=== PATIENT | male | born 1990 | race Two or more races ===

== ENCOUNTER 2024-11-25 21:50 | Emergency (ER) | payer SELFPAY ==
[~2024-11-25] VITALS: Ht 182.9 cm; Wt 136.9 kg
[2024-11-25 21:53] VITALS: BP 172/88; PULSE 84; RESP 16; TEMP 98.3; O2SAT 96
[2024-11-25] MEDS ORDERED: GABAPENTIN 300 MG CAP PO ONE (22:15)
--- NOTE | 2024-11-25 22:16 | ED.PDOC ---
Back pain HPI HPI Comments 34-year-old male who came to ER were back pains. Patient is morbidly obese, has history of sciatica. States for the past 2 weeks, he has been experiencing pain at his right buttocks, radiating down the back of his right leg. For the past 2 days, he has been experiencing numbness of his right leg and left foot. More concerning is that the patient has had groin numbness for the past 24 hours. Patient states he has never experienced numbness before so he decided to come to the ER for further evaluation and management. Patient does ambulate with a slight limp. Chief Complaint: Back Pain Time Seen by MD: 22:19 Reviewed Notes: Nurses Notes Allergies: Coded Allergies: NO KNOWN ALLERGIES (Unverified , 11/25/24) Information Source: Patient Mode of Arrival: Ambulatory Timing: Hours Duration: Since onset Location of Back pain: (R) Buttocks Radiates to: Posterior: (R) Calf, (R) Foot, (L) Foot, (R) Thigh Severity: Moderate Prehospital treatment: None Quality: Aching Onset: Spontaneous History of: Chronic Back Pain, Other (Sciatica) Associated signs and symptoms: Numbness:(L) Foot, Numbness:(R) Leg Past Medical History PAST MEDICAL HISTORY: Denies Past Medical History (Other): Sciatica Surgical History: Denies all surgeries Family History Family History: Reviewed,noncontributory to illness Social History Smoker: Non-Smoker Alcohol: Denies ETOH Use Drugs: Denies Drug Use Lives In: Home Constitutional: denies: chills, diaphoresis, fatigue, fever, malaise, sweats, weakness, others EENTM: denies: blurred vision, double vision, ear bleeding, ear discharge, ear drainage, ear pain, ear ringing, eye pain, eye redness, hearing loss, mouth pain, mouth swelling, nasal discharge, nose bleeding, nose congestion, nose pain, photophobia, tearing, throat pain, throat swelling, voice changes, others Respiratory: denies: cough, hemoptysis, orthopnea, SOB at rest, shortness of breath, SOB with excertion, stridor, wheezing, others Cardiovascular: denies: chest pain, dizzy spells, diaphoresis, Dyspnea on exertion, edema, irregular heart beat, left arm pain, lightheadedness, p alpitations, PND, syncope, others Gastrointestinal: denies: abdomen distended, abdominal pain, blood streaked bowels, constipated, diarrhea, dysphagia, difficulty swallowing, hematemesis, melena, nausea, poor appetite, poor fluid intake, rectal bleeding, rectal pain, vomiting, others Genitourinary: denies: burning, dysuria, flank pain, frequency, hematuria, incontinence, penile discharge, penile sore, pain, testicle pain, testicle swelling, urgency, others Neurological: denies: dizziness, fainting, headache, left sided numbness, left sided weakness, numbness, paresthesia, pre-existing deficit, right sided numbness, right sided weakness, seizure, speech problems, tingling, tremors, weakness, others Musculoskeletal: reports: back pain, muscle pain (Right leg pain), others (Numbness); denies: gout, joint pain, joint swelling, muscle stiffness, neck pain Integumetry: denies: bruises, change in color, change in hair/nails, dryness, laceration, lesions, lumps, rash, wounds, others Allergic/Immunocompromised: denies: Difficulty Healing, Frequent Infections, Hives, Itching, others Hematologic/Lymphatic: denies: anemia, blood clots, easy bleeding, easy bruising, swollen glands, others Endocrine: denies: excessive hunger, excessive sweating, excessive thirst, excessive urination, flushing, intolerance to cold, intolerance to heat, unexplained weight gain, unexplained weight loss, others Psychiatric: denies: anxiety, bipolar disorder, depression, hopeless, panic disorder, schizophrenia, sleepless, suicidal, others Physical Exam General Appearance: Moderate Distress (Moderate distress due to numbness concerns and anxiety related to his issues.), Obese HEENT: Normal ENT Inspection, Pharynx Normal, TMs Normal Neck: Full Range of Motion, Non-Tender, Normal, Normal Inspection Respiratory: Chest Non-Tender, Lungs Clear, No Accessory Muscle Use, No Respiratory Distress, Normal Breath Sounds Cardiovascular: No Edema, No JVD, No Murmur, No Gallop, Normal Peripheral Pulses, Regular Rate/Rhythm Breast Exam: Deferred Gastrointestinal: No Organomegaly, Non Tender, No Pulsatile Mass, Normal Bowel Sounds, Soft Genitalia: Deferred Pelvic: Deferred Rectal: Deferred Extremities: Normal capillary refill, No pedal edema, Other (Patient displays a slight reduction in dorsal flexion of the right foot. Left foot seems to be maintaining strength.) Musculoskeletal : Location: Bilateral Extremity Location: Back (Diffuse bilateral lower lumbar tenderness to palpation extending into the right thigh and right lower leg as well as left foot. Additional concerns are for numbness of the genitalia and groin.) Apperance: Normal Neurologic: Alert, Normal Affect, Normal Mood Cerebellar Function: NOT DONE Reflexes: NOT DONE Skin: Dry, Normal Color, Warm Lymphatic: No Adenopathy Was a procedure done? Was a procedure done?: No Back Pain Differential Dx Differential Diagnosis: Musculoskeletal Pain, Other (Sciatica, cauda equina syndrome) Other Differential Diagnosis Degenerative joint disease X-Ray, Labs, Meds, VS Vital Signs Date Time Temp Pulse Resp B/P (MAP) Pulse Ox O2 Delivery O2 Flow Rate FiO2 11/25/24 21:53 98.3 84 16 172/88 (116) 96 98.3 X-Ray, Labs, Meds, VS Comment Due to the patient's complaints of saddle paresthesia, patient will require higher level of care for evaluation of possible cauda equina progression. Spoke with Dr. Eli at [facility]. Advised her of patient presentation and concerns of cauda equina. She agreed to accept the patient is a transfer. Time of 1ST Reevaluation: 22:15 Reevaluation 1ST: Unchanged Patient Education/Counseling: Diagnosis, Treatment Family Education/Counseling: No Family Present SEPSIS Sepsis Screen Date sepsis recognized/suspect: Nov 25, 2024 Time Sepsis recognized/suspect: 2199 Recent Procedure: No On Antibiotic Therapy: No Respiratory Rate >20: No Heart Rate >90: No Temp<36 C (96.8 F) or >38.3 C: No SBP <90 or MAP <65 mmHG: No New Acute Mental Status Change: No Is the patient on CPAP, BIPAP,: No IV fluid challenge completed?: No Vital Signs Date Time Temp Pulse Resp B/P (MAP) Pulse Ox O2 Delivery O2 Flow Rate FiO2 11/25/24 21:53 98.3 84 16 172/88 (116) 96 98.3 Departure 1 Departure Time of Disposition: 23:20 Impression: Primary Impression: Spinal accessory neuropathy Disposition: 02 SHORT TERM HOSPITAL Condition: Stable Discharged With: Self Critical Care Note Critical Care Time?: No Stability Stability form required: No Heart Score Heart Score: Heart Score Response (Comments) Value History N/A 0 EKG N/A 0 Age N/A 0 Risk Factors N/A 0 Troponin N/A 0 Total 0 I personally scribed for MARYSOL JONES PAC ([place] MD) on 11/25/24 at 22:16. Electronically submitted by Ryan Lagunas ([facility]). I personally scribed for MARYSOL JONES PAC ([place] MD) on 11/25/24 at 22:21. Electronically submitted by Ryan Lagunas ([facility] Horizon[facility]IAH). MARYSOL JONES PAC Nov 25, 2024 22:16
== END 2024-11-26 01:02 | disposition left against medical advice (07) ==
LOC: ER 21:50
DX: G62.9 Polyneuropathy, unspecified (principal); E66.01 Morbid (severe) obesity due to excess calories